=== PATIENT | female | born 1940 | race Caucasian/White ===

== ENCOUNTER 2017-01-16 17:56 | Inpatient (IN) | payer MEDICARE, SELFPAY ==
[~2017-01-16] VITALS: Ht 157.5 cm; Wt 39.6 kg
[~2017-01-16 17:56] MED LIST: PROZAC20 MG PO; THERAGRAN TAB1 EA PO
[2017-01-16 19:30] LABS: HEMOGLOBIN 14.8 gm/dl (12.3-15.3); RED BLOOD COUNT 4.71 M/UL (4.00-5.10); WHITE BLOOD COUNT 9.5 K/UL (4.5-11.0)
[2017-01-16 19:37] LABS: BUN/CREATININE RATIO 24 (0-10)
[2017-01-16] MEDS ORDERED: LOSARTAN POTASS50 MG PO (23:44)
[2017-01-16] MEDS ORDERED: LIPITOR20 MG PO (23:44)
[2017-01-16] MEDS ORDERED: CARDIZEM30 MG PO (23:45)
[2017-01-16] MEDS ORDERED: TRENTAL 400 MG400 MG PO (23:45)
[2017-01-16] MEDS ORDERED: TRAMADOL HCL50 MG PO (23:46)
[2017-01-21 16:30] LABS: HEMOGLOBIN 13.3 gm/dl (12.3-15.3); RED BLOOD COUNT 4.28 M/UL (4.00-5.10); WHITE BLOOD COUNT 8.1 K/UL (4.5-11.0)
[2017-01-21 16:58] LABS: BUN/CREATININE RATIO 33 (0-10)
[2017-01-24 06:08] LABS: BUN/CREATININE RATIO 57 (0-10)
[2017-04-14] MEDS ORDERED: COZAAR50 MG PO (17:22)
[2017-04-14] MEDS ORDERED: MEGACE TAB 40 M40 MG PO (17:23)
[2017-04-14] MEDS ORDERED: METOPROLOL TART25 MG PO (17:23)
[2017-04-14] MEDS ORDERED: ONE DAILY1 EACH PO (17:24)
[2017-04-14] MEDS ORDERED: VENTOLIN HFA 66.7 GM INH (17:25)
== END 2017-01-24 16:38 | DRG 309 ==
LOC: ER1 17:56 → ZEROF 22:20 → PROG CARE 22:20 → MED SURG 4 22:20 → PROG CARE 23:14 → MED SURG 4 01-20 08:49
PROVIDERS: Internal Medicine; Specialist/Technologist Athletic Trainer; ADMIT Internal Medicine
DX: I48.91 Unspecified atrial fibrillation (principal); E44.0 Moderate protein-calorie malnutrition; Z68.1 Body mass index [BMI] 19.9 or less, adult; I50.22 Chronic systolic (congestive) heart failure; I11.0 Hypertensive heart disease with heart failure; I42.8 Other cardiomyopathies; J44.9 Chronic obstructive pulmonary disease, unspecified; I25.10 Atherosclerotic heart disease of native coronary artery without angina pectoris; I48.92 Unspecified atrial flutter; R07.89 Other chest pain; I70.209 Unspecified atherosclerosis of native arteries of extremities, unspecified extremity; G25.0 Essential tremor; R74.0 Nonspecific elevation of levels of transaminase and lactic acid dehydrogenase [LDH]; F17.200 Nicotine dependence, unspecified, uncomplicated; H91.90 Unspecified hearing loss, unspecified ear; Z95.5 Presence of coronary angioplasty implant and graft; Z95.820 Peripheral vascular angioplasty status with implants and grafts; Z86.19 Personal history of other infectious and parasitic diseases; Z72.3 Lack of physical exercise; Z79.899 Other long term (current) drug therapy; Z88.3 Allergy status to other anti-infective agents; Z88.1 Allergy status to other antibiotic agents; Z88.6 Allergy status to analgesic agent; Z90.49 Acquired absence of other specified parts of digestive tract; Z98.890 Other specified postprocedural states; Z82.3 Family history of stroke; Z82.49 Family history of ischemic heart disease and other diseases of the circulatory system
CPT/HCPCS: ECHO; 36415; 71010; 78452; 80053; 80061; 82550; 82553; 83874; 84443; 84484; 85025; 85379; 85610; 85730; 93005; 93017; 93306; 94640; 94664; 96361; 96372; 96374; 96375; 96376; 97110; 97116; 97530; 97535; 99285; A9502; J1650; J2270; J2405; J2785; J7050; Q9963

== ENCOUNTER 2017-02-27 10:20 | Inpatient (IN) | payer OTHER ==
[~2017-02-27] VITALS: Ht 154.9 cm; Wt 41.3 kg
[~2017-02-27 10:20] MED LIST changes: +CARDIZEM30 MG PO; +LIPITOR20 MG PO; +LOSARTAN POTASS50 MG PO; +TRAMADOL HCL50 MG PO; +TRENTAL 400 MG400 MG PO
[2017-02-27] MEDS ORDERED: METOPROLOL TART25 MG PO (12:20)
[2017-02-27] MEDS ORDERED: ASPIR 8181 MG PO (12:20)
[2017-02-27] MEDS ORDERED: PLAVIX 75 MG TA75 MG PO (12:21)
[2017-02-27] MEDS ORDERED: PHENERGAN 25 MG25 M1 PO (12:22)
[2017-02-27] MEDS ORDERED: VENTOLIN HFA 66.7 GM INH (12:31)
--- NOTE | 2017-03-04 11:43 | NUR ---
NOTIFIED DR. LEHMAN C/O LUIS, PATIENT DISCHARGE TO HOSPICE SERVICES. NO NEW MEDICATIONS. PATIENT STAY AT HOSPITAL IS A RESPITE SERVICES. NOTIIFED [facility] NURSE.
[2017-04-14] MEDS ORDERED: COZAAR50 MG PO (17:22)
[2017-04-14] MEDS ORDERED: METOPROLOL TART25 MG PO (17:23)
[2017-04-14] MEDS ORDERED: MEGACE TAB 40 M40 MG PO (17:23)
[2017-04-14] MEDS ORDERED: ONE DAILY1 EACH PO (17:24)
[2017-04-14] MEDS ORDERED: VENTOLIN HFA 66.7 GM INH (17:25)
== END 2017-03-04 10:00 | DRG 303 ==
LOC: M/S 10:20
PROVIDERS: ADMIT Internal Medicine
DX: I25.10 Atherosclerotic heart disease of native coronary artery without angina pectoris (principal); Z75.5 Holiday relief care; Z66 Do not resuscitate; Z91.81 History of falling; Z88.6 Allergy status to analgesic agent; Z88.8 Allergy status to other drugs, medicaments and biological substances; Z79.82 Long term (current) use of aspirin; Z79.51 Long term (current) use of inhaled steroids; Z79.899 Other long term (current) drug therapy
CPT/HCPCS: 94640